=== PATIENT | male | born 1950 | race Caucasian/White ===

== ENCOUNTER → 2023-06-23 15:10 | Outpatient (REF) | payer MEDICARE, OTHER, SELFPAY | LOC: HWRAD 15:10 | PROVIDERS: ATTENDING PHYSICIAN Physician Assistant; FAMILY PHYSICIAN Family Medicine | DX: M25.552 Pain in left hip (principal); M53.3 Sacrococcygeal disorders, not elsewhere classified; M54.50 Low back pain, unspecified | CPT/HCPCS: 72114; 72202; 73523 ==

== ENCOUNTER → 2024-09-03 16:13 | Outpatient (REF) | payer MEDICARE, OTHER, SELFPAY | LOC: RAD 16:13 | PROVIDERS: ATTENDING PHYSICIAN Physician Assistant; FAMILY PHYSICIAN Family Medicine | DX: M54.2 Cervicalgia (principal) | CPT/HCPCS: 72050 ==

== ENCOUNTER → 2024-09-09 14:37 | Outpatient (REF) | payer MEDICARE, OTHER, SELFPAY | LOC: RAD 14:37 | PROVIDERS: ATTENDING PHYSICIAN Physician Assistant; FAMILY PHYSICIAN Family Medicine | DX: S05.50XA Penetrating wound with foreign body of unspecified eyeball, initial encounter (principal) | CPT/HCPCS: 70030 ==

== ENCOUNTER → 2024-09-13 08:05 | Outpatient (REF) | payer MEDICARE, OTHER, SELFPAY | LOC: PAVMRI 08:05 | PROVIDERS: ATTENDING PHYSICIAN Physician Assistant; FAMILY PHYSICIAN Family Medicine | DX: M54.16 Radiculopathy, lumbar region (principal) | CPT/HCPCS: 72148 ==

== ENCOUNTER → 2024-11-29 10:05 | Outpatient (REF) | payer MEDICARE, OTHER, SELFPAY | LOC: HWRAD 10:05 | PROVIDERS: ATTENDING PHYSICIAN Family Medicine | DX: M45.0 Ankylosing spondylitis of multiple sites in spine (principal); Z79.52 Long term (current) use of systemic steroids | CPT/HCPCS: 77080 ==

== ENCOUNTER 2025-01-16 12:11 | Inpatient (IN) | payer MEDICARE, OTHER, SELFPAY ==
[2024-12-24 12:02] LABS: Hematocrit 43.4 % (39.0-52.0); Hemoglobin 14.8 g/dL (13.0-18.0); Mean Corp Hgb Conc. 34.1 g/dL (33.0-37.0); Mean Corpuscular Volume 95.2 fL (80.0-94.0); Platelet Count 258 10^3/uL (130-400); Red Cell Dist. Width 12.8 % (11.5-14.5)
[2024-12-24 12:35] LABS: Glycohemoglobin (HgbA1c) 5.5 % (4.0-5.9)
[2024-12-24 13:05] LABS: ALT (SGPT) 35 U/L (0-50); AST (SGOT) 26 U/L (17-59); Albumin 4.4 g/dl (3.5-5.0); Alkaline Phosphatase 35 U/L (38-126); Blood Urea Nitrogen 23 mg/dl (9-20); Calcium 9.5 mg/dl (8.4-10.2); Carbon Dioxide 29 mmol/L (22-30); Chloride 105 mmol/L (98-107); Glucose 69 mg/dl (70-99); Potassium 5.2 mmol/L (3.5-5.1); Sodium 140 mmol/L (135-145); Total Protein 6.9 g/dl (6.3-8.2); eGFR > 60.00
[2024-12-24 14:08] VITALS: BMI 31.2
--- NOTE | 2024-12-27 14:45 | CM ---
Demographics: confirmed
Living situation: lives independently with
Support Person Post Operatively:
History of
VN: No
SNF: No
Outpatient: Encouraged patient to make appointment for 01/20 with [facility].
Has patient purchased required equipment: walker, cane. shower seat
PCP: confirmed
Pharmacy: [facility]
Post Operative Discharge Plan: Home with , outpatient PT.
[2025-01-16] VITALS (10 sets, daily range): BP systolic 92–152; BP diastolic 49–88; BMI 31.2
[2025-01-16] MEDS: CELEBREX 200 MG PO (12:55)
[2025-01-16] MEDS: TYLENOL 650 MG PO ×2 (12:55→20:00)
[2025-01-16] MEDS: NORMOSOL-R/PLASMALYTE-A 1000 IV ×2 (13:06→18:06)
--- NOTE | 2025-01-16 16:09 | W.PN.ORTHO ---
Today's Communication / Plan
-
d/c when stable
Assessment
.
Assessment:
Immunocompromised state
-holdSimponipre and post-op
Plan
.
Surgery / Date: L JOEL Dr Jensen 01/16/25
DVT Prophylaxis: Aspirin
Activity:
Out of bed.
PT/OT
Discharge Plan: Home w/ Outpatient PT
Vital Signs and Labs
.
Vital Signs and Labs:
Lab Results
12/24/24 10:26
12/24/24 10:24
Temp Pulse Resp BP Pulse Ox
98.5 F 67 16 152/69 95
01/16/25 12:50 01/16/25 12:50 01/16/25 12:50 01/16/25 12:50 01/16/25 12:50
--- NOTE | 2025-01-16 16:14 | W.DS.TRANS ---
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
-
Discharge Instructions:
Sleep Apnea Risk Low
Discharge Diagnosis/Procedures L hip OA s/p L JOEL w/ Dr Jensen 01/16/25
Diet Regular
Additional Diets Adequate hydration, minimize opioids, and wear
TEDs stockings to prevent low blood pressure/
dizziness.
Activity As tolerated,With Walker
Driving Restrictions Not until seen by your Dr
Bathing Restrictions OK to Shower
Other Services PT
Wound Care Leave dressing on until seen by surgeon's office
for follow-up.
Instructions:
Stand-Alone Forms: Total Hip/Knee Replacement D/C
Changes to Home Medications: Yes
Discharge Medications:
DC Medications w/original date entered in [facility]
Simponi ARIA 1 dose IV Q8W arthritis 12/20/24
Held on 01/16/25. Instructions: Resume on 02/14/25.
cetirizine 10 mg tablet (Zyrtec) 10 mg PO DAILY Allergies 12/20/24
fluticasone propionate 50 mcg/actuation nasal spray,suspension (Flonase Allergy Relief) 1 spray intranasal DAILY Allergies 12/20/24
garlic 5,000 mcg tablet 5 mg PO NOON Supplement 12/20/24
Held on 01/16/25. Instructions: Resume on 01/24/25.
lecithin 1,365 mg PO DAILY Supplement 12/20/24
Held on 01/16/25. Instructions: Resume on 01/24/25.
melatonin 5 mg tablet 5 - 10 mg PO HS Sleep 12/20/24
multivitamin 1 tab PO DAILY Supplement 12/20/24
omega [id number]-fish oil 1,200 mg (144 mg-216 mg) capsule (Fish Oil) 1 cap PO DAILY Supplement 12/20/24
Held on 01/16/25. Instructions: Resume on 01/24/25.
polyethylene glycol 3350 17 gram oral powder packet (Miralax) 17 g PO DAILY Constipation 12/20/24
prednisone 5 mg tablet 5 mg PO PRN PRN arthritis 12/20/24
red yeast rice 600 mg tablet 1,200 mg PO BID Supplement 12/20/24
Held on 01/16/25. Instructions: Resume on 01/24/25.
solifenacin 10 mg tablet (Vesicare) 10 mg PO DAILY Urinary Issue 12/20/24
zinc acetate 50 mg (zinc) capsule 50 mg PO DAILY Supplement 12/20/24
ascorbic acid (vitamin C) 1,000 mg tablet 1,000 mg PO DAILY Supplement 12/24/24
mupirocin 2 % topical ointment 1 applic intranasal BID #1 tube 12/24/24
cefadroxil 500 mg capsule 500 mg PO BID #14 caps 01/07/25
dexamethasone 4 mg tablet 4 mg PO BID Anti-inflammatory #5 tabs 01/07/25
gabapentin 300 mg capsule 300 mg PO HS neuropathic pain/sleep #10 caps 01/07/25
ondansetron HCl 4 mg tablet 4 mg PO Q6H PRN nausea and vomiting #30 tabs 01/07/25
oxycodone 5 mg tablet 5 - 10 mg (1 - 2 x 5 mg) PO Q6H PRN moderate-severe pain #30 tabs 01/15/25
Saccharomyces boulardii 250 mg capsule (Florastor) 250 mg PO BID #1 cap 01/16/25
acetaminophen 325 mg tablet (Tylenol) 650 mg (2 x 325 mg) PO QID #1 tab 01/16/25
aspirin 325 mg tablet 325 mg PO DAILY blood clot prevention #1 tab 01/16/25
celecoxib 200 mg capsule 200 mg PO DAILY Anti-inflammatory #14 caps 01/16/25
docusate sodium 100 mg capsule (Colace) 100 mg PO BID stool softner #1 cap 01/16/25
famotidine-Ca carb-mag hydrox 10 mg-800 mg-165 mg chewable tablet (Pepcid Complete) 1 tab PO HS GERD #0 tabs 01/16/25
magnesium hydroxide 400 mg/5 mL oral suspension (Milk of Magnesia) 30 ml PO HS PRN constipation #1 mL 01/16/25
sennosides 8.6 mg tablet (Senokot) 17.2 mg (2 x 8.6 mg) PO BID laxative #2 tabs 01/16/25
tramadol 50 mg tablet 50 mg PO BID #0 tabs 01/16/25
Home Medication Changes
mupirocin 2 % topical ointment 1 applic intranasal BID #1 tube 12/24/24
cefadroxil 500 mg capsule 500 mg PO BID #14 caps 01/07/25
dexamethasone 4 mg tablet 4 mg PO BID Anti-inflammatory #5 tabs 01/07/25
gabapentin 300 mg capsule 300 mg PO HS neuropathic pain/sleep #10 caps 01/07/25
ondansetron HCl 4 mg tablet 4 mg PO Q6H PRN nausea and vomiting #30 tabs 01/07/25
oxycodone 5 mg tablet 5 - 10 mg (1 - 2 x 5 mg) PO Q6H PRN moderate-severe pain #30 tabs 01/15/25
Saccharomyces boulardii 250 mg capsule (Florastor) 250 mg PO BID #1 cap 01/16/25
acetaminophen 325 mg tablet (Tylenol) 650 mg (2 x 325 mg) PO QID #1 tab 01/16/25
aspirin 325 mg tablet 325 mg PO DAILY blood clot prevention #1 tab 01/16/25
celecoxib 200 mg capsule 200 mg PO DAILY Anti-inflammatory #14 caps 01/16/25
docusate sodium 100 mg capsule (Colace) 100 mg PO BID stool softner #1 cap 01/16/25
famotidine-Ca carb-mag hydrox 10 mg-800 mg-165 mg chewable tablet (Pepcid Complete) 1 tab PO HS GERD #0 tabs 01/16/25
magnesium hydroxide 400 mg/5 mL oral suspension (Milk of Magnesia) 30 ml PO HS PRN constipation #1 mL 01/16/25
sennosides 8.6 mg tablet (Senokot) 17.2 mg (2 x 8.6 mg) PO BID laxative #2 tabs 01/16/25
tramadol 50 mg tablet 50 mg PO BID #0 tabs 01/16/25
Pending Results: No
[2025-01-16] MEDS: DILAUDID 0.25 MG IV ×3 (16:45→17:09)
--- NOTE | 2025-01-16 16:49 | OR.RPT ---
Operative Report
Operative Report
Orthopaedic Surgery Operative Note
DATE OF OPERATION: 01/16/2025
PREOPERATIVE DIAGNOSES: Osteoarthritis, left hip
POSTOPERATIVE DIAGNOSES: Same
OPERATION PERFORMED: Left total hip arthroplasty.
SURGEON: Ronan Jensen MD
LINEN GRADER: Epi Jennings PA-C who helped with patient and limb positioning and retraction
ANESTHESIA: Spinal
COMPLICATIONS: None.
ESTIMATED BLOOD LOSS: 50 mL.
DRAINS: None
SPECIMEN: None
FINDINGS: Advanced articular cartilage wear on the femoral head and acetabulum.
IMPLANTS:
Biomet G7 Acetabular Shell, cluster hole, size 56
Biomet G7 Highly Crosslinked PE Liner, neutral
Osbaldo M/L Taper femoral stem, size 11 with standard neck length and extended offset
Biolox Ceramic Head, size 40mm -3.5
INDICATIONS: The patient presented to my office with debilitating left hip pain due to osteoarthritis. We reviewed the natural history of this problem, as well as the risks, benefits, and alternatives of various treatment options. The patient
exhausted all nonoperative treatment options and wished to proceed with hip replacement surgery. The patient understood the risks which included, but were not limited to, bleeding, infection, failure to relieve pain, more pain than preop, damage to
blood vessels and nerves, need for reoperation, mechanical failure of the implants, wound healing problems, stiffness, instability, blood clot, pulmonary embolism, myocardial infarction, pneumonia, arrhythmia, CVA, and . The patient accepted
these risks and wished to proceed. All questions were answered, and informed consent was obtained.
PROCEDURE IN DETAIL: The patient was identified in the preoperative holding area. The left hip was identified as the operative site. The patient was taken in the operating room and transferred to the operative table. Spinal anesthesia was performed.
IV antibiotics and tranexamic acid were administered. The patient was placed in the lateral position with Stulberg hip positioners. Axillary roll was placed. The down leg was well padded. All bony prominences were well padded. The operative limb was
prepped and draped in the usual sterile fashion.
Time out was performed. A posterolateral approach to the hip was used. The skin incision was centered over the greater trochanter. This was taken down sharply through subcutaneous tissues. Meticulous hemostasis was achieved throughout the case with
electrocautery. We split the fascia jon in line with skin incision. I split the gluteus lindsey bluntly. We cauterized all crossing vessels as we split it. I palpated the sciatic nerve and made sure it was well posterior in the operative field. It
was protected throughout the case.
I performed a partial bursectomy to identify the short external rotators. The gluteus medius and minimus were identified and retracted anteriorly. I incised the piriformis tendon and conjoint tendon at their insertions. These were tagged for later
repair. I then performed a trapezoidal capsulotomy. The edges were tagged for later repair. I referenced the cut edge of the capsular flap to 2 fixed points on the greater trochanter for assistance with recreation of limb length and offset. I then
dislocated the hip posteriorly. I performed a femoral neck osteotomy approximately 10 mm above the lesser trochanter, as per preoperative templating. The femoral head measured 51 mm in outer diameter. The distance between the neck cut and center of
the femoral head was measured to be 40mm. I placed a curve hohmann retractor over the anterior lip of the acetabulum between the labrum and the anterior hip capsule. A second retractor was placed inferiorly just distal to the transverse acetabular
ligament. Circumferential view of the acetabulum was achieved. I incised the labrum and pulvinar with electrocautery. There was synovitis and this was removed as well. I started with a 51 mm reamer and reamed down to the medial wall. I then
sequentially reamed up to a 55mm reamer. This gave a nice bed of bleeding bone with excellent column support anteriorly and posteriorly. I impacted the acetabular shell in approximately 40 degrees of abduction and 20 degrees of anteversion. I
matched the anteversion of the transverse acetabular ligament. I also made sure that the anterior rim of the socket was not proud of the anterior wall to minimize the chance of iliopsoas tendinitis. I confirmed the cup was well-seated. I then
impacted a neutral liner and confirmed it was well seated with the locking mechanism.
On the femoral side, I use a box osteotome to open the proximal starting point. I found the canal with a Charnley awl and a lateralizing reamer. I then used the Osbaldo M/L taper broaches sequentially to prepare the femoral canal. The size 11 came to
a stop at the desired level and had excellent axial and rotational stability. We trialed with a trial ball head. The hip was taken through a complete range of motion. It was noted to be stable in extension without impingement. It was stable in the
position of sleep and in flexion with internal rotation. The limb length and offset were checked compared to the capsular flap and was appropriate. The measured length between the lesser trochanter and center of the femoral head was 42.5mm.
I removed the trials. I impacted the femoral implant to match the [place] version. It had excellent axial and rotational stability. Trial ball head was placed, and I reduced the hip and took the hip through a complete range of motion. There was no
impingement in external rotation and extension. Position of sleep was stable. At 90 degrees of flexion and slight adduction, the hip could be internally rotated to 90 degrees with no subluxation. I palpated the sciatic nerve, which was tension free
and unharmed. Based on our capsular flap measurement, we had restored the offset and leg length. The trial ball head was removed, and the final ball head was impacted onto a clean and dry Olea taper. The hip was reduced.
A dilute betadine soak was performed for approximately 3 minutes, and then the hip was copiously irrigated. I repaired the capsule, piriformis, and conjoint tendon with #2 Ethibond to drill holes in the greater trochanter. Local anesthetic was
injected. The fascia jon was closed with #1 PDS in running fashion. The subcutaneous tissues were closed with 2-0 monofilament in running fashion. The skin was reapproximated with 3-0 monofilament subcuticular suture. I placed a skin glue dressing
followed by a Mepilex Ag dressing. The patient awoke from anesthesia without difficulty. Sponge and instrument counts were correct x2 at the end of the case.
I was present and participated in the entire procedure. I checked leg length at the ankles after transfer on the bed which was equal. The patient was sent to the recovery room in stable condition.
Wilfred Jensen MD
[2025-01-16] MEDS: ROXICODONE 5 MG PO ×2 (16:59→23:31)
--- NOTE | 2025-01-16 18:00 | PTCARENOTE ---
Patient admitted from [facility] post left total hip arthroplasty.The patient is alert and oriented.He rates his pain at a 4 out of 10.Neurovascular assessment is within normal limits and ongoing.The left hip dressing is intact without drainage.Vital
signs are stable.The patient is in his bed with the call braxton in reach.
[2025-01-16] MEDS: ASPIRIN 325 MG PO (18:05)
[2025-01-16] MEDS: ULTRAM PO (19:59)
[2025-01-16] MEDS: SENOKOT 17.2 MG PO (20:00)
[2025-01-16] MEDS: TORADOL 15 MG IV (20:00)
[2025-01-16] MEDS: DECADRON 4 MG IV (20:00)
[2025-01-16] MEDS: BACTROBAN 2% OINTMENT 1 APPLIC NASAL (20:00)
[2025-01-16] MEDS: COLACE 100 MG PO (20:00)
[2025-01-16] MEDS: PEPCID PO (21:11)
[2025-01-16] MEDS: ANCEF 5 IV (21:12)
[2025-01-16] MEDS: NEURONTIN 300 MG PO (21:12)
[2025-01-16] MEDS: TYLENOL PO (23:28)
[2025-01-16] MEDS: PEPCID 20 MG PO (23:31)
[2025-01-17] MEDS: TYLENOL 650 MG PO ×3 (01:30→12:18)
[2025-01-17] MEDS: MAALOX 30 ML PO (02:00)
[2025-01-17 03:14] VITALS: BP 130/76
[2025-01-17] MEDS: ANCEF 5 IV (05:21)
[2025-01-17 08:00] VITALS: BP 138/77
--- NOTE | 2025-01-17 08:18 | CM ---
Addendum entered by Leesa Rios 01/17/25 10:20:
Plan is for home with visiting nurses, [facility] has been contacted for PT/OT and Nursing
Original Note:
Chart reviewed including physical therapy recommendations and case mangier met with patient and patient has set up outpatient physical therapy at [facility] for Monday01/20/25, patient states he has walker, cane and shower seat in home.
Family to transport.
Plan; Home with outpatient physical therapy at [facility], starting 01/20/25.
[2025-01-17] MEDS: ASPIRIN 325 MG PO (08:30)
[2025-01-17] MEDS: BACTROBAN 2% OINTMENT 1 APPLIC NASAL (08:30)
[2025-01-17] MEDS: SENOKOT 17.2 MG PO (08:31)
[2025-01-17] MEDS: COLACE 100 MG PO (08:31)
[2025-01-17] MEDS: CELEBREX 200 MG PO (08:31)
[2025-01-17] MEDS: TORADOL 15 MG IV (08:32)
[2025-01-17] MEDS: ZYRTEC 10 MG PO (08:32)
[2025-01-17] MEDS: DECADRON 4 MG IV (08:32)
[2025-01-17] MEDS: ULTRAM 50 MG PO (08:32)
[2025-01-17 10:41] VITALS: BP 143/71
--- NOTE | 2025-01-17 11:04 | W.PN.ORTHO ---
Today's Communication / Plan
-
d/c
Assessment
.
Distal Motor Intact: Yes
Dressing:
Clean, dry and intact.
Assessment:
Immunocompromised state
-hold Simponi pre and post-op
Plan
.
Surgery / Date: L JOEL Jesnen 01/16/25
DVT Prophylaxis: Aspirin
Activity:
Out of bed.
PT/OT
Discharge Plan: Home w/ VN
Subjective
.
.:
Patient resting comfortably.
Vital Signs and Labs
.
Vital Signs and Labs:
Lab Results
12/24/24 10:26
12/24/24 10:24
Temp Pulse Resp BP Pulse Ox
98.2 F 78 18 138/77 95
01/17/25 08:00 01/17/25 08:00 01/17/25 08:00 01/17/25 08:00 01/17/25 08:00
Non-invasive Hgb result: 13.1
Physical Exam
-
HEENT: No pallor, cyanosis, or jaundice. Throat clear.
NECK: Supple. No JVD.
RESPIRATORY: Lungs clear to auscultation.
CVS: S1, S2 normal. RRR.� No murmur, rub or gallop.
ABDOMEN: Soft, non-tender. No distension. BS+/normal.
EXTREMITIES: strength equal, no calf pain with palpation
FORMWORK CARPENTER: AOx3. No focal deficits. j2ee programmer grossly intact
[2025-01-17 11:18] VITALS: BP 143/71; PULSE 79
--- NOTE | 2025-01-17 11:20 | VNURNOTE ---
Home Health Liaison met with patient and spouse at bedside to discuss [facility] nurse/therapy, visits, schedule and homebound status. Patient is agreeable and understands that visits at home will be 2-3 x per week to assess and teach medical
management.
Patient is aware that [facility] will contact them for start of care within 1-2 days after discharge from . Provided contact number for [facility].
[facility] referral completed in [facility].
[2025-01-17 12:03] VITALS: BP 137/63
== END 2025-01-17 13:50 | disposition home health service (06) | DRG 470 ==
LOC: 2 SOUTH 12:11
PROVIDERS: ADMITTING PHYSICIAN Orthopaedic Surgery; FAMILY PHYSICIAN Family Medicine
PROC: 0SRB04Z Replacement of Left Hip Joint with Ceramic on Polyethylene Synthetic Substitute, Open Approach (ICD-10-PCS; 2025-01-16)
DX: M16.12 Unilateral primary osteoarthritis, left hip (principal); D84.9 Immunodeficiency, unspecified; E78.00 Pure hypercholesterolemia, unspecified; K21.9 Gastro-esophageal reflux disease without esophagitis; K58.1 Irritable bowel syndrome with constipation; M48.061 Spinal stenosis, lumbar region without neurogenic claudication; M45.9 Ankylosing spondylitis of unspecified sites in spine; N32.81 Overactive bladder; G47.00 Insomnia, unspecified; M65.98 Unspecified synovitis and tenosynovitis, other site; E87.5 Hyperkalemia; E66.9 Obesity, unspecified; Z68.31 Body mass index [BMI] 31.0-31.9, adult; Z85.46 Personal history of malignant neoplasm of prostate; Z86.0100 Personal history of colon polyps, unspecified; Z87.19 Personal history of other diseases of the digestive system; Z90.79 Acquired absence of other genital organ(s); Z79.899 Other long term (current) drug therapy
CPT/HCPCS: 36415; 73502; 80053; 83036; 85027; 87070; 93005; 97110; 97116; 97162; 97166; 97530; 97535; C1776